=== PATIENT | female | born 1950 ===

== ENCOUNTER 2021-05-25 06:30 | Outpatient (CLI) | payer MEDICARE, SELFPAY ==
--- OUTSIDE RECORDS SUMMARY | 2021-06-13 09:35 | XMS_ITS ---
:1950 Author Organization [facility] Address [facility] [place], [place] [address] [place] [id number] Care Team Providers Name Role Phone Basim Ch MD Primary Care Provider Reason for Referral Imaging (Urgent) Status Reason Specialty Diagnoses / Referred By Referred To Procedures Contact Contact Pending Review Procedures Demetri Wheat, IR REMOVAL NEPH MD TUBE W FLUORO?? [address] [place] IR CONSULT [place] [id number] Electronically signed by Demetri Wheat MD atImaging (Urgent) Status Reason Specialty Diagnoses / Referred By Referred To Procedures Contact Contact Pending Review RADIOLOGY Procedures Demetri Lyons MD USE ECHO 2D FU LTD [facility]. USE ECHO LTD [address] [place], [place] [address]
== END 2021-05-25 06:31 | disposition home or self-care (01) ==
LOC: ANHLAB 10:30
DX: Z53.8 Procedure and treatment not carried out for other reasons (principal)
CPT/HCPCS: 99199; 36415